=== PATIENT | female | born 1970 | race Caucasian/White ===

== ENCOUNTER 2016-04-10 22:05 | Emergency (ER) | payer SELFPAY ==
[~2016-04-10 22:05] MED LIST: ADVA250A INH; COLA100C PO; CYCL-36 PO; HYDR-3535 PO; VENTAER INH; XANA1TAB6 PO
[2016-04-10 22:15] VITALS: BP 158/78; PULSE 95; RESP 18; O2SAT 98
[2016-04-10] MEDS ORDERED: flonase nasal spray (22:20)
[2016-04-10] MEDS ORDERED: ADVA250A INH (22:20)
[2016-04-10] MEDS ORDERED: XANA1TAB2 PO (22:20)
[2016-04-10] MEDS ORDERED: FEXO15TA PO (22:20)
[2016-04-10] MEDS ORDERED: LIDOCAINE HCL 1% PF 30 ML VIAL INFIL ONE (22:30)
[2016-04-10] MEDS ORDERED: TETANUS/DIPHTHERIA TOXOID ADULT 0.5 ML VIAL IM ONE (22:30)
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
[2016-04-11 01:19] VITALS: BP 127/83
== END 2016-04-11 01:20 | disposition home or self-care (01) ==
LOC: PHEFT 22:05
DX: S01.01XA Laceration without foreign body of scalp, initial encounter (principal); S16.1XXA Strain of muscle, fascia and tendon at neck level, initial encounter; Y04.2XXA Assault by strike against or bumped into by another person, initial encounter; Z23 Encounter for immunization
CPT/HCPCS: 12001; 70450; 70486; 72100; 72125; 90471; 90714